=== PATIENT | male | born 1995 | race African-American/Black ===

== ENCOUNTER 2021-06-27 04:05 | Emergency (ER) | payer SELFPAY ==
[~2021-06-27] VITALS: Ht 167.6 cm; Wt 71.5 kg
[2021-06-27 04:17] VITALS: BP 154/97
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
== END 2021-06-27 05:00 ==
LOC: ER 04:05
DX: S00.83XA Contusion of other part of head, initial encounter (principal); S00.212A Abrasion of left eyelid and periocular area, initial encounter; V49.49XA Driver injured in collision with other motor vehicles in traffic accident, initial encounter; Y92.488 Other paved roadways as the place of occurrence of the external cause; Y93.89 Activity, other specified; Y99.8 Other external cause status
CPT/HCPCS: 99283